=== PATIENT | male | born 1990 | race African-American/Black ===

== ENCOUNTER 2020-03-20 00:44 | Emergency (ER) | payer MEDICAID ==
[~2020-03-20] VITALS: Ht 177.8 cm; Wt 90.0 kg
[2020-03-20 00:52] VITALS: BP 149/94
[2020-03-20 01:51] LABS: CLARITY URINE CLEAR (CLEAR); COLOR URINE YELLOW (YELLOW); KETONES URINE NEGATIVE (NEGATIVE); LEUKOCYTE ESTERASE URINE NEGATIVE (NEGATIVE); NITRITE URINE NEGATIVE (NEGATIVE); OCCULT BLOOD URINE NEGATIVE (NEGATIVE); PH URINE 6.5 (4.5-8.0); PROTEIN URINE NEGATIVE (NEGATIVE); SPECIFIC GRAVITY URINE 1.004 (1.005-1.030); UROBILINOGEN URINE 0.2 E.U./dL (0.2-1.0)
[2020-03-20] MEDS ORDERED: CEFTRIAXONE SODIUM 500 MG/VIAL IM ONE (02:30)
== END 2020-03-20 03:06 | disposition home or self-care (01) ==
LOC: ER 00:44
DX: Z20.2 Contact with and (suspected) exposure to infections with a predominantly sexual mode of transmission (principal)
CPT/HCPCS: 81003; 96372; 99283; J0696

== ENCOUNTER 2020-04-05 03:04 | Emergency (ER) | payer MEDICAID ==
[~2020-04-05] VITALS: Ht 170.2 cm; Wt 77.0 kg
[2020-04-05] MEDS ORDERED: CEFTRIAXONE SODIUM 500 MG/VIAL IM ONE (03:30)
[2020-04-05] MEDS ORDERED: DOXYCYCLINE HYCLATE 100MG CAPSULE PO ONE (03:30)
[2020-04-05] MEDS ORDERED: LIDOCAINE HCL/PF 1% 10 MG/ML 5ML VIAL IJ ONE (03:30)
[2020-04-05 04:20] VITALS: BP 142/82
[2020-04-06 09:09] LABS: HIV SCREEN 4G Non Reactive (Non Reactive)
== END 2020-04-05 04:20 | disposition home or self-care (01) ==
LOC: ER 03:04
DX: A64 Unspecified sexually transmitted disease (principal)
CPT/HCPCS: 86592; 86694; 86695; 86696; 87389; 96372; 99283; J0696; J3490

== ENCOUNTER 2022-09-22 21:11 | Emergency (ER) | payer MEDICAID, OTHER ==
[~2022-09-22] VITALS: Ht 175.3 cm; Wt 77.0 kg
[2022-09-22 22:18] VITALS: BP 174/95; O2SAT 100
[2022-09-22] MEDS ORDERED: TETANUS, DIPHTHERIA, PERTUSSIS VAC/PF 0.5ML (>10YR OLD) IM ONE (23:45)
[2022-09-22] MEDS ORDERED: CEFAZOLIN SODIUM 1000MG/VIAL IM ONE (23:45)
[2022-09-23] MEDS ORDERED: BACITRACIN ZINC OINT UDPKT TOP ONE (00:15)
[2022-09-23] MEDS ORDERED: LIDOCAINE HCL/PF 1% 10 MG/ML 5ML VIAL INFIL ONE (00:15)
[2022-09-23] MEDS ORDERED: CEFAZOLIN 1000MG PREMIX 50ML IV NR (01:00)
[2022-09-23] MEDS ORDERED: CEPH500T MT (02:30)
[2022-09-23 04:16] VITALS: PULSE 100; RESP 18; TEMP 98.9
== END 2022-09-23 04:20 | disposition home or self-care (01) ==
LOC: ER 21:11
DX: S31.119A Laceration without foreign body of abdominal wall, unspecified quadrant without penetration into peritoneal cavity, initial encounter (principal); X58.XXXA Exposure to other specified factors, initial encounter; Y93.89 Activity, other specified; Y92.89 Other specified places as the place of occurrence of the external cause; Y99.8 Other external cause status
CPT/HCPCS: 12001; 99285; 71250; 74176; 90715; 90471; 96365; J0690; Z7610 ×3